=== PATIENT | female | born 1960 | race Caucasian/White ===

== ENCOUNTER 2018-10-08 05:41 | Day surgery (SDC) | payer OTHER ==
--- NOTE | 2018-10-07 13:53 | SSS ---
CHIEF COMPLAINT: Need for screening colonoscopy. HISTORY OF PRESENT ILLNESS: Ms. Michelle is a 58 year-old female who presented to my office for routine followup. It was noted that she was due for a repeat colonoscopy. She had had a colonoscopy around 9 years ago and she is due for a repeat colonoscopy. She did have a hyperplastic polyp at that time. She denies any symptoms referable to her bowels, specifically no abdominal pain or changes in her bowel habits. PAST MEDICAL HISTORY: 1. Hyperlipidemia with primarily high triglycerides and low HDL. 2. Hypertension. 3. History of endometriosis. 4. History of infertility and finally conceived at age 38. 5. History of migraine headaches. 6. Strong family history of breast cancer. 7. -induced hypertension. PAST OBSTETRICAL HISTORY: She is 1 para 1. PAST SURGICAL HISTORY: 1. Laparoscopic procedure for possible blocked ovarian tube in December 1996. 2. Laparoscopic cholecystectomy by Dr. Posada in November 2007. 3. Vaginal hysterectomy, laparoscopic with bilateral salpingo-oophorectomy and posterior colporrhaphy with vaginal vault suspension. 4. TVTO bladder suspension by Dr. Wisdom on 08/27/15. 5. Colonoscopy by this physician in October 2009 where she had a hyperplastic polyp removed from her descending colon. She had no diverticula. CURRENT MEDICATIONS: 1. Avalide. 2. Potassium. 3. Simvastatin. 4. Singulair. 5. Topamax. 6. Imitrex p.r.n. 7. Albuterol nebulizer p.r.n. ALLERGIES: PROPRANOLOL WHICH CAUSES FATIGUE. FAMILY HISTORY: Father of a brainstem hemorrhage. He also had prostate cancer. Mother from metastatic breast cancer. She also had congestive heart failure, coronary artery disease, hypertension, hyperlipidemia and type 2 diabetes. She has 1 brother, Aroldo. She had a great aunt and several second cousins with breast cancer. SOCIAL HISTORY: She is a retired [employer] teacher. She is and has 1 child. She has never smoked. She drinks alcohol very infrequently. REVIEW OF SYSTEMS: Negative except as per History of Present Illness. PHYSICAL EXAMINATION: VITAL SIGNS: Weight 258, blood pressure 138/80, pulse 84. GENERAL: She is awake and alert, in no acute distress. HEENT: Unremarkable. NECK: Supple. CHEST: Lungs are clear. CARDIOVASCULAR: Regular rate and rhythm. ABDOMEN: Obese but benign. NEUROLOGIC: Nonfocal. RECTAL: Exam is deferred until time of colonoscopy. SKIN: Warm and dry. ASSESSMENT: 1. Need for screening colonoscopy. PLAN: Colonoscopy on 10/08/18. #[id number] [facility]
[2018-10-08] MEDS ORDERED: LACTATED RINGERS 1,000 ML ONE (06:45)
[2018-10-08] MEDS ORDERED: LACTATED RINGERS 1,000 ML IVS ONE ×2 (07:10)
[2018-10-08] MEDS ORDERED: fentaNYL CITRATE INJ 50 MCG/ML AMP ONE (07:23)
[2018-10-08] MEDS ORDERED: MIDAZOLAM INJ 2 MG/2 ML VIAL ONE (07:23)
--- NOTE | 2018-10-08 09:20 | OP ---
DATE OF PROCEDURE: 10/08/18 PREOPERATIVE DIAGNOSIS: 1. Screening colonoscopy. POSTOPERATIVE DIAGNOSIS: 1. 0.25 by 0.25 cm transverse colon polyp, biopsied x2 to obliteration. 2. Otherwise normal colonoscopy to the cecum. PROCEDURE: 1. Colonoscopy. SURGEON: Stuart Lopez MD. ESTIMATED BLOOD LOSS: Less than 1 mL. COMPLICATIONS: No immediate complications. ANESTHESIA: Propofol 500 mg, Versed 2 mg, fentanyl 2 mL administered intravenously via Richie Wood CRNA using monitored anesthesia care. TECHNIQUE: After informed consent was obtained from the patient, the patient was taken to the Endoscopy Suite and placed in the left lateral decubitus position. Incremental doses of propofol, Versed and fentanyl were given until adequate sedation was obtained. Digital rectal examination was unremarkable. Supplemental oxygen was administered throughout the procedure. Vital signs were monitored throughout the procedure. After digital rectal exam was done, the colonoscope was then advanced into the patient's rectum and up through the sigmoid, descending, transverse and ascending colon to the level of the cecum. Looping was noted throughout the ascending colon and cecal region. Manual pressure had to be applied to reach the cecum. The terminal ileum was entered only briefly. The cecum was photographed. Appendiceal orifice was noted. Overall, bowel prep was good, though there were some areas of liquid stool. When the scope was being inserted, a polyp was noted in the transverse colon and biopsied x2 to obliteration. Once the cecum was reached, the colonoscope was then slowly withdrawn. Great care was taken to try to visualize all walters of the colon in 360 degree fashion. There were some areas of liquid stool noted and effort was made to try to suction out as much of this as possible. No other abnormalities were noted throughout the entire colon. In the rectum, the colonoscope was retroflexed upon itself and the rectum appeared normal. The colonoscope was then unretroflexed and the colonoscope was removed from the patient. The patient tolerated the procedure well. PLAN: Followup in my office in 7 to 10 days to review the pathology report. The patient will need repeat colonoscopy pending the pathology of the polyp, but not likely to be before 3 years. She will need a Cologuard q.3 years as well. #[id number] [facility]
[2018-10-08] MEDS ORDERED: PROPOFOL 200 MG/20 ML VIAL IV ONE (10:00)
[2018-10-08] MEDS ORDERED: LIDOCAINE 1% 10 ML VIAL INJ ONE (10:00)
[2018-10-08 10:03] VITALS: O2SAT 98
[2018-10-08 10:04] VITALS: BP 145/78; TEMP 97.2
== END 2018-10-11 09:15 | disposition home or self-care (01) ==
LOC: AMB 05:41
PROVIDERS: ATTEND Family Medicine
DX: Z12.11 Encounter for screening for malignant neoplasm of colon (principal); D12.3 Benign neoplasm of transverse colon; E78.5 Hyperlipidemia, unspecified; I10 Essential (primary) hypertension; Z90.710 Acquired absence of both cervix and uterus; Z90.49 Acquired absence of other specified parts of digestive tract; Z88.8 Allergy status to other drugs, medicaments and biological substances; Z79.899 Other long term (current) drug therapy
CPT/HCPCS: 00812; 45380; J2250; J3010; J3490; J7120